=== PATIENT | male | born 1950 | race Caucasian/White ===

== ENCOUNTER 2017-05-30 10:06 | Emergency (ER) | payer OTHER ==
[~2017-05-30] VITALS: Ht 188 cm; Wt 73.8 kg
[~2017-05-30 10:06] MED LIST: COREG25 M1 PO; DIGOX250 MCG PO; DOK PLUS TABLE1 EACH PO; LISINOPRIL2.5 MG PO; LOPRESSOR25 MG PO; MUCINEX600 MG PO; PERCOCET 10/1 TABLET PO; PERCOCET 5/31 TABLET PO; PROTONIX40 MG PO; THERAGRAN1 TABLET PO; TYLENOL EXTRA500 MG PO; TYLENOL REGULA325 MG PO; UNASYN3 GM IM; UNASYN3 GM IV; VANCOMYCIN1 GM/150 M IV; VITAMIN D35000 UNIT PO; WARFARIN SODIUM5 MG PO; XARELTO20 MG PO
[2017-05-30] MEDS ORDERED: LIDODERM 5% P1 PATCH TD (12:24)
[2017-05-30] MEDS ORDERED: PREDNISONE20 MG PO (12:24)
[2017-05-30] MEDS ORDERED: FLEXERIL10 MG PO (12:24)
[2017-05-30 12:35] VITALS: BP 115/85
== END 2017-05-30 12:49 | disposition home or self-care (01) ==
LOC: EME 10:06
DX: M54.42 Lumbago with sciatica, left side (principal)
CPT/HCPCS: 99281; 99284; J7512